=== PATIENT | female | born 1975 | race Caucasian/White ===

== ENCOUNTER 2018-06-04 18:44 | Emergency (ER) | payer OTHER ==
[2018-06-04] MEDS ORDERED: Rocephin 1000 MG INJ IM ONE (19:10)
[2018-06-04] MEDS ORDERED: XYLOCAINE 1% HCL 20 ML MDV ONE (19:12)
[2018-06-04] MEDS ORDERED: Rocephin 1000 MG INJ ONE (19:12)
--- NOTE | 2018-06-04 19:20 | ERPHSYRPT ---
- History of Present Illness Time Seen by Provider: 06/04/18 19:17 Source: patient Exam Limitations: no limitations Physician History: Patient is 43-year-old female recently underwent melanoma surgery and lymph node removal from her left groin last Wednesday and since last she was started having a low-grade fever, chills, and pain radiating to the left side of the abdomen. She denies any other symptoms. Timing/Duration: day(s) Associated Symptoms: chills, fever, rash - Review of Systems Constitutional: No Fever, No Chills Eyes: No Symptoms Ears, Nose, & Throat: No Symptoms Respiratory: No Cough, No Dyspnea Cardiac: No Chest Pain, No Edema, No Syncope Abdominal/Gastrointestinal: No Abdominal Pain, No Nausea, No Vomiting, No Diarrhea Genitourinary Symptoms: No Dysuria Musculoskeletal: No Back Pain, No Neck Pain Skin: Cellulitis, Induration, Rash Neurological: No Dizziness, No Focal Weakness, No Sensory Changes Psychological: No Symptoms Endocrine: No Symptoms All Other Systems: Reviewed and Negative - Physical Exam General Appearance: no apparent distress, alert Eye Exam: PERRL/EOMI, eyes nml inspection Ears, Nose, Throat Exam: normal ENT inspection, TMs normal, pharynx normal, moist mucous membranes Neck Exam: normal inspection, non-tender, supple, full range of motion Respiratory Exam: normal breath sounds, lungs clear, No respiratory distress Cardiovascular Exam: regular rate/rhythm, normal heart sounds, normal peripheral pulses Gastrointestinal/Abdomen Exam: soft, normal bowel sounds, No tenderness, No mass Back Exam: normal inspection, normal range of motion, No CVA tenderness, No vertebral tenderness Extremity Exam: normal inspection, normal range of motion, pelvis stable Neurologic Exam: alert, oriented x 3, cooperative, normal mood/affect, sensation nml, No motor deficits Skin Exam: normal color, warm, dry, rash, other (surgical area redness) Lymphatic Exam: No adenopathy - Course Nursing assessment & vital signs reviewed: Yes Ordered Tests: Medication Summary Discontinued Medications Generic Name Dose Route Start Last Admin Trade Name Freq PRN Reason Stop Dose Admin Ceftriaxone Sodium 1,000 mg 06/04/18 19:10 Rocephin 1000 Mg Inj IM 06/04/18 19:11 STAT ONE Ceftriaxone Sodium Confirm 06/04/18 19:12 Rocephin 1000 Mg Inj Administered 06/04/18 19:13 Dose 1,000 mg .ROUTE .STK-MED ONE Lidocaine HCl Confirm 06/04/18 19:12 Xylocaine 1% Hcl 20 Ml Mdv Administered 06/04/18 19:13 Dose 3 ml .ROUTE .STK-MED ONE - Progress Progress: unchanged, pain not gone completely Counseled pt/family regarding: diagnosis, need for follow-up - Departure Time of Disposition: 19:19 Departure Disposition: Home Clinical Impression: Cellulitis of groin, left, 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 Please take your medication as prescribed if given. If symptoms recur or get worse, come back to the emergency room if you cannot reach your primary care physician, or call your primary care physician for an appointment. Again if your symptoms get worse, come back to the emergency room. Thanks for visiting emergency room, and let us take care of you. VICKIESUSAN MALDONADO was seen on 06/04/18 n the Emergency Room. At that time you were treated for an emergent condition, during your visit Laboratory, Radiology and/or other procedures may have been ordered. It is very important that you follow-up with your Primary Care Physician CHIRAG RAMOS within the next 24- 48 hours to review your Emergency Room visit and the final results of testing that was ordered. Some test results such as Urine Cultures, Blood Cultures, and other cultures if ordered will not be finalized for 24-48 hours. If you do not have a Primary Care Provider please call the medical records department at [phone] to obtain a copy of your results or you may sign into our patient portal to obtain these results by visiting us @ [email or web address] and completing the following steps: 1. Click on the Patient Portal link 2. Click the Patient Self Enrollment Link to complete the enrollment form and entering your 3. Once the enrollment form is completed you will receive an email with a temporary ID and password at the email address you provided. 4. Next choose a user name and password. Your user name must be at least 4 characters long and your password must be at least 4 characters long. 5. Choose a security question from the list and provide your answer to the question. If you already have signed into the Health Portal you may access your Health Care Information 03/05 by the following steps: 1. Login to our website @ [email or web address] 2. Enter your original user name and password. FAQS [facility] Health Portal is an online tool that contains your Lab Results, Radiology Reports, Visit History, Discharge Instructions and Health Summary Lab and Radiology Results will not be available for 72 hours on the portal. The Portal is a secure site, passwords are encryted and URLs are re-written so they cannot be copied and pasted. You and authorized family members are the only ones who can access your Portal. Also there is a timeout feature that protects your information if you leave the Portal page open. If you have technical difficulty please use the Contact Us link on the page this will allow you to submit any questions you have regarding the Portal or you may contact the Medical Record Department at [phone]. Prescriptions: Levofloxacin [Levaquin 500 MG Tablet] 500 mg PO QAM #10 tablet Naproxen 375 mg [Naprosyn 375 mg] 375 mg PO Q8H #30 tablet
[2018-06-04] MEDS ORDERED: TORAdol 30 mg Injection IM ONE (19:22)
[2018-06-04] MEDS ORDERED: Naprosyn 500 MG PO STA (19:23)
[2018-06-04] MEDS ORDERED: TORAdol 30 mg Injection ONE (19:28)
[2018-06-04 19:46] VITALS: BP 169/85; PULSE 86; O2SAT 96
== END 2018-06-04 19:46 | disposition home or self-care (01) ==
LOC: ED 18:44
DX: L03.314 Cellulitis of groin (principal); D03.8 Melanoma in situ of other sites
CPT/HCPCS: 96372; 99284; J0696; J1885; A9270-GY

== ENCOUNTER 2018-07-31 10:53 | Observation (INO) | payer OTHER ==
[2018-07-31] MEDS ORDERED: Sodium Chloride 0.9% 1000 ML 1,000 ML IV STA ×2 (11:30→13:21)
[2018-07-31] MEDS ORDERED: Sodium Chloride 0.9% 1000 ML 1,000 ML ONE ×2 (11:37→14:15)
--- NOTE | 2018-07-31 11:41 | ERPHSYRPT ---
- History of Present Illness Time Seen by Provider: 07/31/18 11:34 Source: patient Exam Limitations: no limitations Patient Subjective Stated Complaint: patient had carcinoma removal on left leg nad the area is now swollen and hot to touch reddened . patient experiencing fever and chills for over 24 hours Triage Nursing Assessment: pt alert and orientedx3, able to ambulate by self, gait is steady, skin warm dry and intact, has reddend swollen area hot to touch. pedal pulses present, previous cellulitis of same wound area stated by patient. Physician History: 43-year-old white female status post melanoma removal on the patient's left leg and lymph node removal left groin 2 months ago arrives with complaint of erythema in her left medial proximal thigh tenderness in the left medial proximal thigh. She states that she's had a fever to 103 at home. She states she is taking ibuprofen. Past medical history includes depression Past surgical history includes Melanoma removal left leg, lymph nodes removed left groin. Social history occasional alcohol denies drug use. Timing/Duration: day(s) (2 days) Severity: moderate Modifying Factors: Improves With: nothing Associated Symptoms: fever, malaise, other (pain left groin (proximal medial thigh)), No nausea, No vomiting, No abdominal pain, No shortness of breath, No heartburn, No diaphoresis, No cough, No chills, No chest pain, No headaches, No loss of appetite, No rash, No syncope, No seizure, No weakness Allergies/Adverse Reactions: No Known Drug Allergies Allergy (Verified 06/04/18 19:22) Home Medications: Venlafaxine HCl [Effexor] 37.5 mg PO DAILY 06/04/18 [History] Hx Tetanus, Diphtheria Vaccination/Date Given: Yes Hx Influenza Vaccination/Date Given: No Hx Pneumococcal Vaccination/Date Given: No Immunizations Up to Date: Yes - Review of Systems Constitutional: Fever Eyes: No Symptoms Ears, Nose, & Throat: No Symptoms Respiratory: No Cough, No Dyspnea Cardiac: No Chest Pain, No Edema, No Syncope Abdominal/Gastrointestinal: No Abdominal Pain, No Nausea, No Vomiting, No Diarrhea Genitourinary Symptoms: No Dysuria Musculoskeletal: Other (Pain in the left medial thigh), No Back Pain, No Neck Pain Skin: Other (erythema left medial thigh) Neurological: No Dizziness, No Focal Weakness, No Sensory Changes Psychological: No Symptoms Endocrine: No Symptoms All Other Systems: Reviewed and Negative - Past Medical History Pertinent Past Medical History: Yes Psycho-Social History: Depression Other Medical History: basal cell carcinoma left leg - Past Surgical History Past Surgical History: Yes Musculoskeletal: Orthopedic Surgery Other Surgical History: basal cell removed from left leg. lymph nodes removed from left groin - Social History Smoking Status: Current every day smoker How long have you smoked: 26 Exposure to second hand smoke: No Drug Use: none Patient Lives Alone: No - Female History Hx Now: No - Nursing Vital Signs Nursing Vital Signs: Initial Vital Signs Temperature 99.9 F 07/31/18 10:53 Pulse Rate 98 H 07/31/18 10:53 Respiratory Rate 18 07/31/18 10:53 Blood Pressure 133/88 07/31/18 10:53 O2 Sat by Pulse Oximetry 99 07/31/18 10:53 Pain Scale Pain Intensity 6 - Physical Exam General Appearance: mild distress, alert, other (well-developed well-nourished white female, mild distress) Eye Exam: PERRL/EOMI, eyes nml inspection Ears, Nose, Throat Exam: normal ENT inspection, TMs normal, pharynx normal, moist mucous membranes Neck Exam: normal inspection, non-tender, supple, full range of motion Respiratory Exam: normal breath sounds, lungs clear, No respiratory distress Cardiovascular Exam: regular rate/rhythm, normal heart sounds, normal peripheral pulses Gastrointestinal/Abdomen Exam: soft, normal bowel sounds, No tenderness, No mass Back Exam: normal inspection, normal range of motion, No CVA tenderness, No vertebral tenderness Extremity Exam: other (Left medial proximal thigh with firm area appears to represent prior surgery which is healed area is firm and slightly raised approximately 3 x 5 cm. overlying area mild erythema, area exquisitely tender with palpation) Neurologic Exam: alert, oriented x 3, cooperative, chicken stuffer II-XII nml as tested, normal mood/affect, nml cerebellar function, nml station & gait, sensation nml, No motor deficits Skin Exam: other (left medial thigh with 3 x 5 cm firm mildly raised area with overlying 3 cm area which appears to be healed incision area is mildly erythematous and exquisitely tender) SpO2 Interpretation: normal (99%) SpO2: 99 Oxygen Delivery: Room Air - Course Nursing assessment & vital signs reviewed: Yes Ordered Tests: Active Orders 24 hr Category Date Time Status IV Insertion STAT Care 07/31/18 11:30 Active BLOOD CULTURE Stat Lab 07/31/18 11:40 Received CBC W DIFF Stat Lab 07/31/18 11:40 Completed CMP Stat Lab 07/31/18 11:40 Completed CULTURE,URINE Stat Lab 07/31/18 11:40 Received HCG QUALITATIVE,SERUM Stat Lab 07/31/18 11:40 Completed Lactic Acid Stat Lab 07/31/18 11:30 Completed UA W/RFX UR CULTURE Stat Lab 07/31/18 11:40 Completed Medication Summary Generic Name Dose Route Start Last Admin Trade Name Freq PRN Reason Stop Dose Admin Sodium Chloride 1,000 mls @ 999 mls/hr 07/31/18 13:21 Sodium Chloride 0.9% 1000 Ml IV 07/31/18 14:21 .Q1H1M STA Discontinued Medications Generic Name Dose Route Start Last Admin Trade Name Freq PRN Reason Stop Dose Admin Hydrocodone Bitart/Acetaminophen 1 tab 07/31/18 12:08 07/31/18 12:15 Echola 5/325 Mg PO 07/31/18 12:09 1 tab STAT ONE Administration Hydrocodone Bitart/Acetaminophen Confirm 07/31/18 12:12 Echola 5/325 Mg Administered 07/31/18 12:13 Dose 1 tab .ROUTE .STK-MED ONE Hydrocodone Bitart/Acetaminophen 1 tab 07/31/18 12:57 07/31/18 13:14 Echola 5/325 Mg PO 07/31/18 12:58 1 tab STAT ONE Administration Hydrocodone Bitart/Acetaminophen Confirm 07/31/18 13:13 Echola 5/325 Mg Administered 07/31/18 13:14 Dose 1 tab .ROUTE .STK-MED ONE Sodium Chloride 1,000 mls @ 999 mls/hr 07/31/18 11:30 07/31/18 11:38 Sodium Chloride 0.9% 1000 Ml IV 07/31/18 12:30 999 mls/hr .Q1H1M STA Administration Sodium Chloride Confirm 07/31/18 11:37 Sodium Chloride 0.9% 1000 Ml Administered 07/31/18 11:38 Dose 1,000 mls @ ud .ROUTE .STK-MED ONE Ceftriaxone Sodium/Dextrose 1 g in 50 mls @ 100 mls/hr 07/31/18 12:05 12:15 Rocephin 1 Gm-D5w 50 Ml Bag IV 07/31/18 12:34 100 ml/hr STAT STA 100 mls/hr Administration Ceftriaxone Sodium/Dextrose Confirm 07/31/18 12:12 Rocephin 1 Gm-D5w 50 Ml Bag Administered 07/31/18 12:13 Dose 1 g in 50 mls @ ud IV .STK-MED ONE Ibuprofen 600 mg 07/31/18 12:51 07/31/18 12:54 Motrin 600 Mg PO 07/31/18 12:52 600 mg STAT ONE Administration Ibuprofen Confirm 07/31/18 12:53 Motrin 600 Mg Administered 07/31/18 12:54 Dose 600 mg .ROUTE .STK-MED ONE Lab/Rad Data: Laboratory Result Diagrams 07/31/18 11:40 07/31/18 11:40 Laboratory Results 07/31/18 07/31/18 07/31/18 Range/Units 11:40 11:40 11:40 WBC (4.0-10.5) K/mm3 RBC (4.1-5.4) M/mm3 Hgb (12.0-16.0) gm/dl Hct (35-47) % MCV (78-100) fl MCH (26-32) pg MCHC (32-36) g/dl RDW (11.5-14.0) % Plt Count (150-450) K/mm3 MPV (6-9.5) fl Gran % (36.0-66.0) % Eos # (Auto) (0-0.5) Absolute Lymphs (auto) (1.0-4.6) Absolute Monos (auto) (0.0-1.3) Lymphocytes % (24.0-44.0) % Monocytes % (0.0-12.0) % Eosinophils % (0.00-5.0) % Basophils % (0.0-0.4) % Absolute Granulocytes (1.4-6.9) Basophils # (0-0.4) Sodium 142 (137-145) mmol/L Potassium 4.4 (3.5-5.1) mmol/L Chloride 103 (98-107) mmol/L Carbon Dioxide 28 (22-30) mmol/L Anion Gap 15.5 H (5-15) MEQ/L BUN 7 (7-17) mg/dL Creatinine 0.66 (0.52-1.04) mg/dL Estimated GFR > 60.0 ML/MIN Glucose 109 H (74-106) mg/dL Lactic Acid (0.4-2.0) Calcium 9.2 (8.4-10.2) mg/dL Total Bilirubin 0.50 (0.2-1.3) mg/dL AST 10 L (14-36) U/L ALT 12 (0-35) U/L Alkaline Phosphatase 74 (38-126) U/L Serum Total Protein 8.0 (6.3-8.2) g/dL Albumin 4.6 (3.5-5.0) g/dL Serum , Qual NEGATIVE (Negative) Urine Color STRAW (YELLOW) Urine Appearance CLEAR (CLEAR) Urine pH 8.0 (5-6) Ur Specific [place] 1.002 (1.005-1.025) Urine Protein NEGATIVE (Negative) Urine Ketones NEGATIVE (NEGATIVE) Urine Blood MODERATE (0-5) Etienne/ul Urine Nitrite NEGATIVE (NEGATIVE) Urine Bilirubin NEGATIVE (NEGATIVE) Urine Urobilinogen NEGATIVE (0-1) mg/dL Ur Leukocyte Esterase TRACE (NEGATIVE) Urine WBC (Auto) 3-5 (0-5) /HPF Urine RBC (Auto) 0-2 (0-2) /HPF U Epithel Cells (Auto) RARE (FEW) /HPF Urine Bacteria (Auto) RARE (NEGATIVE) /HPF Urine Mucus (Auto) SLIGHT (NEGATIVE) /HPF Urine Culture Reflexed YES (NO) Urine Glucose NEGATIVE (NEGATIVE) mg/dL 07/31/18 07/31/18 Range/Units 11:40 11:30 WBC 20.3 H (4.0-10.5) K/mm3 RBC 4.84 (4.1-5.4) M/mm3 Hgb 14.9 (12.0-16.0) gm/dl Hct 45.3 (35-47) % MCV 93.6 (78-100) fl MCH 30.8 (26-32) pg MCHC 32.9 (32-36) g/dl RDW 13.9 (11.5-14.0) % Plt Count 323 (150-450) K/mm3 MPV 10.4 H (6-9.5) fl Gran % 80.0 H (36.0-66.0) % Eos # (Auto) 0.04 (0-0.5) Absolute Lymphs (auto) 2.65 (1.0-4.6) Absolute Monos (auto) 1.34 H (0.0-1.3) Lymphocytes % 13.0 L (24.0-44.0) % Monocytes % 6.6 (0.0-12.0) % Eosinophils % 0.2 (0.00-5.0) % Basophils % 0.2 (0.0-0.4) % Absolute Granulocytes 16.26 H (1.4-6.9) Basophils # 0.04 (0-0.4) Sodium (137-145) mmol/L Potassium (3.5-5.1) mmol/L Chloride (98-107) mmol/L Carbon Dioxide (22-30) mmol/L Anion Gap (5-15) MEQ/L BUN (7-17) mg/dL Creatinine (0.52-1.04) mg/dL Estimated GFR ML/MIN Glucose (74-106) mg/dL Lactic Acid 0.9 (0.4-2.0) Calcium (8.4-10.2) mg/dL Total Bilirubin (0.2-1.3) mg/dL AST (14-36) U/L ALT (0-35) U/L Alkaline Phosphatase (38-126) U/L Serum Total Protein (6.3-8.2) g/dL Albumin (3.5-5.0) g/dL Serum , Qual (Negative) Urine Color (YELLOW) Urine Appearance (CLEAR) Urine pH (5-6) Ur Specific [place] (1.005-1.025) Urine Protein (Negative) Urine Ketones (NEGATIVE) Urine Blood (0-5) Etienne/ul Urine Nitrite (NEGATIVE) Urine Bilirubin (NEGATIVE) Urine Urobilinogen (0-1) mg/dL Ur Leukocyte Esterase (NEGATIVE) Urine WBC (Auto) (0-5) /HPF Urine RBC (Auto) (0-2) /HPF U Epithel Cells (Auto) (FEW) /HPF Urine Bacteria (Auto) (NEGATIVE) /HPF Urine Mucus (Auto) (NEGATIVE) /HPF Urine Culture Reflexed (NO) Urine Glucose (NEGATIVE) mg/dL - Progress Progress: improved Progress Note: 07/31/18 11:41 This is a 43-year-old white female with history of melanoma which was removed from the patient's left posterior leg distally and also removal of lymph nodes on patient's left medial groin approximately 2 months ago she states that for the past 2 days she's had a fever she has erythema in the left medial groin she is quite tender in the area She appears to have a proximally 3 x 5 cm raised area on the left medial groin , mild erythema with overlying healed incision. This area is exquisitely painful with palpation. She states she has had a fever up to 103 at home but has been taking ibuprofen Will go ahead and obtain blood cultures serum lactate CBC CMP and urinalysis. Do not anticipate incision of this area secondary to prior melanoma in the area. We will consider antibiotics. 07/31/18 12:40 Patient given 1 g of Rocephin IV. Patient given Echola for pain 5/325. I've offered her a second Echola she really doesn't want this. Will plan to discharge patient provide prescription of clindamycin 300 mg orally 3 times a day for 10 days. Will also plan to have patient place cool packs to the left groin/proximal thigh 24-48 hours. Will write for Echola 5/325 #14 tablets one orally every 4-6 hours as needed for pain. Patient has been advised to follow-up with her family doctor Wednesday or sooner if symptoms becoming worse. She is return for acute distress or for severe symptoms. 07/31/18 12:48 The patient's temperature is now 101.5 07/31/18 12:52 I went in and talked to the patient. She states she just generally feels malaise she states she does not feel well at all. Will go ahead and give patient Motrin 600 mg orally. X 07/31/18 13:35 I contacted [facility] states that his patient's option to stay at this hospital, the patient states she would like to stay at this hospital I contacted Dr. Jose Luis oCrbett. Discussed patient's case with her. Will go ahead and plan on admitting the patient. Continuing IV Rocephin. , Administering pain medications. Dr. Corbett requested that I write for a surgery consult. - Departure Time of Disposition: 12:41 Departure Disposition: Observation (Dr Corbett) Clinical Impression: Cellulitis of left thigh, history of melanoma left leg Fever Qualifiers: Fever type: unspecified Qualified Code(s): R50.9 - Fever, unspecified Leukocytosis Qualifiers: Leukocytosis type: unspecified Qualified Code(s): D72.829 - Elevated white blood cell count, unspecified Condition: Fair Critical Care Time: No Referrals: [facility] [Primary Care Provider] - Instructions: Fever, Adult (DC)
[2018-07-31 11:49] LABS: BASOPHIL % 0.2 % (0.0-0.4); Basophil (Absolute #) 0.04 (0-0.4); Eosinophil % 0.2 % (0.00-5.0); Eosinophil (Absolute #) 0.04 (0-0.5); Granulocyte Absolute (ANC) 16.26 (1.4-6.9); Hematocrit 45.3 % (35-47); Hemoglobin 14.9 gm/dl (12.0-16.0); Lymphocyte (Absolute #) 2.65 (1.0-4.6); Mean Cell Volume 93.6 fl (78-100); Mean Corpuscular Hemoglobin 30.8 pg (26-32); Mean Corpuscular Hgb Concent. 32.9 g/dl (32-36); Mean Platelet Volume 10.4 fl (6-9.5); Monocyte (Absolute #) 1.34 (0.0-1.3); Monocytes % 6.6 % (0.0-12.0); Platelet Count 323 K/mm3 (150-450); Red Blood Count 4.84 M/mm3 (4.1-5.4); Red Cell Distribution Width 13.9 % (11.5-14.0); White Blood Count 20.3 K/mm3 (4.0-10.5)
[2018-07-31 12:01] LABS: ALBUMIN 4.6 g/dL (3.5-5.0); ALKALINE PHOSPHATASE 74 U/L (38-126); ANION GAP 15.5 MEQ/L (5-15); BLOOD UREA NITROGEN 7 mg/dL (7-17); CHLORIDE 103 mmol/L (98-107); Calcium 9.2 mg/dL (8.4-10.2); Carbon Dioxide 28 mmol/L (22-30); Creatinine 1 0.66 mg/dL (0.52-1.04); Glucose 109 mg/dL (74-106); Potassium 4.4 mmol/L (3.5-5.1); SGOT/AST 10 U/L (14-36); SGPT/ALT 12 U/L (0-35); SODIUM 142 mmol/L (137-145)
[2018-07-31] MEDS ORDERED: ROCEPHIN 1 Gm-D5w 50 ml Bag** 1 G/50 ML IVPB IV STA (12:05)
[2018-07-31] MEDS ORDERED: NORCO 5/325 MG PO ONE ×2 (12:08→12:57)
[2018-07-31] MEDS ORDERED: ROCEPHIN 1 Gm-D5w 50 ml Bag** 1 G/50 ML IVPB IV ONE (12:12)
[2018-07-31] MEDS ORDERED: NORCO 5/325 MG ONE ×2 (12:12→13:13)
[2018-07-31 12:21] LABS: Appearance CLEAR (CLEAR); Bilirubin NEGATIVE (NEGATIVE); Blood MODERATE Ery/ul (0-5); Glucose NEGATIVE (NEGATIVE); Ketones NEGATIVE (NEGATIVE); Leukocyte Esterase TRACE (NEGATIVE); Nitrite NEGATIVE (NEGATIVE); Protein,Urine Dip NEGATIVE (Negative); Specific Gravity 1.002 (1.005-1.025); Urobilinogen NEGATIVE mg/dL (0-1)
[2018-07-31] MEDS ORDERED: MOTRIN 600 MG PO ONE (12:51)
[2018-07-31] MEDS ORDERED: MOTRIN 600 MG ONE (12:53)
[2018-07-31] MEDS ORDERED: NEOSYNEPHRINE 0.5% NASAL SPRAY/DROPS ONE (13:41)
[2018-07-31] MEDS: Sodium Chloride 0.9% 1000 ML 1,000 ML IV SCH (17:12)
[2018-07-31] MEDS: MOTRIN 600 MG PO PRN (20:14)
[2018-08-01] MEDS: TYLENOL 325 MG PO PRN ×2 (03:44→14:47)
[2018-08-01] MEDS: Sodium Chloride 0.9% 1000 ML 1,000 ML IV SCH ×2 (04:49→19:09)
[2018-08-01 05:30] LABS: BASOPHIL % 0.2 % (0.0-0.4); Basophil (Absolute #) 0.03 (0-0.4); Eosinophil % 0.5 % (0.00-5.0); Eosinophil (Absolute #) 0.09 (0-0.5); Granulocytes % 82.5 % (36.0-66.0); Hematocrit 34.8 % (35-47); Hemoglobin 11.3 gm/dl (12.0-16.0); Lymphocyte (Absolute #) 2.01 (1.0-4.6); Lymphocytes % 11.1 % (24.0-44.0); Mean Cell Volume 95.1 fl (78-100); Mean Corpuscular Hgb Concent. 32.5 g/dl (32-36); Mean Platelet Volume 10.8 fl (6-9.5); Monocyte (Absolute #) 1.04 (0.0-1.3); Monocytes % 5.7 % (0.0-12.0); Platelet Count 253 K/mm3 (150-450); Red Blood Count 3.66 M/mm3 (4.1-5.4); Red Cell Distribution Width 13.8 % (11.5-14.0); White Blood Count 18.2 K/mm3 (4.0-10.5)
[2018-08-01 05:41] LABS: Mean Corpuscular Hemoglobin 30.8 pg (26-32)
[2018-08-01 05:49] LABS: ALBUMIN 3.3 g/dL (3.5-5.0); ALKALINE PHOSPHATASE 71 U/L (38-126); BLOOD UREA NITROGEN 7 mg/dL (7-17); CHLORIDE 111 mmol/L (98-107); Calcium 7.9 mg/dL (8.4-10.2); Carbon Dioxide 22 mmol/L (22-30); Creatinine 1 0.48 mg/dL (0.52-1.04); Glucose 111 mg/dL (74-106); Potassium 3.5 mmol/L (3.5-5.1); SGOT/AST 15 U/L (14-36); SGPT/ALT 15 U/L (0-35); SODIUM 138 mmol/L (137-145); Total Protein 6.1 g/dL (6.3-8.2)
[2018-08-01] MEDS: NORCO 5/325 MG PO PRN ×2 (08:15→20:08)
[2018-08-01] MEDS: EFFEXOR 37.5 MG PO SCH (08:15)
[2018-08-01] MEDS ORDERED: FLUZONE QUAD (36mo-64yo) 2018-2019 SYRINGE IM ONE (10:00)
--- NOTE | 2018-08-01 10:07 | XRAY ---
Indication: Left groin lump. Two-dimensional targeted soft tissue ultrasound of the left groin region performed where there is a large cystic mass measuring 8.6 x 4.8 x 5.7 cm with hypervascular septation present. No other solid/cystic mass or abnormal fluid collection.
--- NOTE | 2018-08-01 11:07 | CONS ---
CONSULT DATE: 08/01/2018 The patient is seen by Dr. Hamilton Raza who was consulted over the weekend so I swung by on my way to [facility] to check on the patient. HISTORY: The patient is a 43 year-old female apparently had some melanoma surgery left lower extremity mid portion of posterior left leg behind the knee area just below the knee area. She had a node biopsy up in the groin area. She had some cellulitis that was poor to respond to antibiotics. Recently she had increased cellulitis, pain and swelling of groin area. She had some sutures taken out left leg biopsy site that dehisced some. She has an Escher there. She had a fever of 101.5F yesterday. She has been on IV antibiotics. They asked for surgical evaluation. I was consulted for Hamilton Raza. White blood cell count 18.2, hemoglobin 11.3. PAST MEDICAL HISTORY: Melanoma. History of depression in the past. PAST SURGICAL HISTORY: Melanoma removed from the left leg. She had node biopsy left groin area. HOME MEDICATIONS: Includes venlafaxine. ALLERGIES: NKDA. FAMILY HISTORY: Negative in regards to this specific problem. SOCIAL HISTORY: Occasional alcohol use denies abuse. History of smoking. REVIEW OF SYSTEMS: Twelve systems reviewed. She had a fever of 103F recently. She is not on IV antibiotics here. Otherwise pertinent for pain and swelling. Otherwise negative or noncontributory as above. PHYSICAL EXAMINATION: GENERAL: No acute distress. HEENT: Sclera nonicteric. NECK: No JVD. CHEST: Equal excursion, nonlabored breathing. CVS: Regular rhythm and pulse. ABDOMEN: Nondistended. EXTREMITIES: Open wound behind her knee upper and lower leg area with Escher. No significant fluctuance there, signs of wound dehiscence after sutures removed in the past. The upper thigh towards the groin transverse incision that is intact, no drainage. There is some redness and swelling there. The area is swollen more than it was a couple of weeks ago. Redness and swelling has not changed much when she started on antibiotics. NEURO: Alert, moving extremities grossly symmetrically. IMPRESSION: Cellulitis left upper thigh groin area under node biopsy site this was a lymph node removal site. Question whether she has possible infected seroma versus surrounding cellulitis or other infected seroma. Either way I recommend continuing IV antibiotics, recommend radiology ultrasound to explore the area. Can drain it and possibly place a drain if indicated and cultures. If this fails to improve she might need to open the wound, irrigation and packing. Either way needs continue antibiotic. If she fails to improve she might need to follow up with a surgeon. Ultrasound, drainage, possible drain placement if indicated as well as culture. Again, this patient is seen for Dr. Hamilton Raza who was paving stone installer for our group when the consult came in.
[2018-08-01] MEDS ORDERED: XYLOCAINE 1% HCL 20 ML MDV IJ ONE (11:13)
[2018-08-01] MEDS: ROCEPHIN 1 Gm-D5w 50 ml Bag** 1 G/50 ML IVPB IV SCH (12:07)
--- NOTE | 2018-08-01 13:00 | PCM.HP ---
History of Present Illness - Chief Complaint Chief Complaint: Cellulitis of Left Thigh, Fever, Leukocytosis, Hx of Melanoma Left Leg History of Present Illness: is a 43 year old female status post melanoma removal on the patient' s left leg and lymph node removal left groin 2 months ago arrives with complaint of erythema in her left medial proximal thigh tenderness in the left medial proximal thigh. She states that she's had a fever to 103 at home. - Review of Systems Constitutional: Fever, Chills Eyes: No Symptoms Ears, Nose, & Throat: No Symptoms Respiratory: No Cough, No Short Of Breath Cardiac: No Chest Pain, No Edema, No Syncope Abdominal/Gastrointestinal: No Abdominal Pain, No Nausea, No Vomiting, No Diarrhea Genitourinary Symptoms: No Dysuria Musculoskeletal: No Back Pain, No Neck Pain Skin: No Rash Neurological: No Dizziness, No Focal Weakness, No Sensory Changes Psychological: No Symptoms Endocrine: No Symptoms Hematologic/Lymphatic: No Symptoms Immunological/Allergic: No Symptoms Medications & Allergies Home Medications: Home Medication List Venlafaxine HCl [Effexor] 37.5 mg PO DAILY 06/04/18 [History Confirmed 07/31/18] Allergies/Adverse Reactions: Allergies Allergy/AdvReac Type Severity Reaction Status Date / Time No Known Drug Allergies Allergy Verified 06/04/18 19:22 - Past Medical History Past Medical History: Yes Neurological History: No Pertinent History ENT History: No Pertinent History Cardiac History: Hypertension Respiratory History: No Pertinent History Endocrine Medical History: No Pertinent History Musculoskelatal History: Fractures GI Medical History: No Pertinent History History: No Pertinent History Pyscho-Social History: Depression Reproductive Disorders: No Pertinent History Comment: 05/2018 Had melonoma cut out of L leg and lymph nodes in L groin. - Female History Hx Last Menstrual Period: 07/28/18 Are you now?: No - Past Surgical History Past Surgical History: Yes (2018) Neuro Surgical History: No Pertinent History Cardiac History: No Pertinent History GI Surgical History: No Pertinent History Genitourinary Surgical Hx: No Pertinent History Musculskeletal Surgical Hx: No Pertinent History Female Surgical History: Tubal Ligation, Other Other Surgical History: basal cell removed from left leg. lymph nodes removed from left groin - Social History Smoking Status: Current every day smoker How long have you smoked: 25 yrs Exposure to second hand smoke: No Alcohol: Occasionally Drug Use: none - Physical Exam Vital Signs: Vital Signs - 24 hr Temp Pulse Resp BP Pulse Ox 08/01/18 07:23 97 08/01/18 07:18 99.5 F 87 17 126/84 97 08/01/18 04:00 100.5 F 91 H 19 130/76 96 08/01/18 00:00 98.9 F 82 17 133/76 96 07/31/18 19:40 99.0 F 74 18 116/73 97 07/31/18 19:07 98 07/31/18 17:13 99.2 F 82 18 122/72 97 07/31/18 16:00 98 07/31/18 14:34 99.2 F 82 18 122/72 97 07/31/18 13:37 99 General Appearance: no apparent distress, alert Neurologic Exam: alert, oriented x 3, cooperative, normal mood/affect, nml cerebellar function, nml station & gait, sensation nml, No motor deficits Eye Exam: PERRL/EOMI, eyes nml inspection Ears, Nose, Throat Exam: normal ENT inspection, TMs normal, pharynx normal, moist mucous membranes Neck Exam: normal inspection, non-tender, supple, full range of motion Respiratory Exam: normal breath sounds, lungs clear, No respiratory distress Cardiovascular Exam: regular rate/rhythm, normal heart sounds, normal peripheral pulses Gastrointestinal/Abdomen Exam: soft, normal bowel sounds, No tenderness, No mass Back Exam: normal inspection, normal range of motion, No CVA tenderness, No vertebral tenderness Extremity Exam: normal inspection, normal range of motion, pelvis stable Skin Exam: normal color, warm, dry, No rash Lymphatic Exam: No adenopathy Results - Labs Lab/Micro Results: Lab Results-Last 24 Hours 07/31/18 08/01/18 08/01/18 Range/Units 11:45 05:08 05:08 WBC 18.2 H (4.0-10.5) K/mm3 RBC 3.66 L (4.1-5.4) M/mm3 Hgb 11.3 L (12.0-16.0) gm/dl Hct 34.8 L (35-47) % MCV 95.1 (78-100) fl MCH 30.8 (26-32) pg MCHC 32.5 (32-36) g/dl RDW 13.8 (11.5-14.0) % Plt Count 253 (150-450) K/mm3 MPV 10.8 H (6-9.5) fl Gran % 82.5 H (36.0-66.0) % Eos # (Auto) 0.09 (0-0.5) Absolute Lymphs (auto) 2.01 (1.0-4.6) Absolute Monos (auto) 1.04 (0.0-1.3) Lymphocytes % 11.1 L (24.0-44.0) % Monocytes % 5.7 (0.0-12.0) % Eosinophils % 0.5 (0.00-5.0) % Basophils % 0.2 (0.0-0.4) % Absolute Granulocytes 15.00 H (1.4-6.9) Basophils # 0.03 (0-0.4) Sodium 138 (137-145) mmol/L Potassium 3.5 (3.5-5.1) mmol/L Chloride 111 H (98-107) mmol/L Carbon Dioxide 22 (22-30) mmol/L Anion Gap 9.0 (5-15) MEQ/L BUN 7 (7-17) mg/dL Creatinine 0.48 L (0.52-1.04) mg/dL Estimated GFR > 60.0 ML/MIN Glucose 111 H (74-106) mg/dL Calcium 7.9 L (8.4-10.2) mg/dL Total Bilirubin 0.20 (0.2-1.3) mg/dL AST 15 (14-36) U/L ALT 15 (0-35) U/L Alkaline Phosphatase 71 (38-126) U/L Serum Total Protein 6.1 L (6.3-8.2) g/dL Albumin 3.3 L (3.5-5.0) g/dL Prealbumin 17.16 L (17.6-36.0) mg/dL Microbiology 07/31/18 11:40 Blood Culture - Preliminary Blood NO GROWTH TO DATE 07/31/18 11:40 Blood Culture - Preliminary Blood NO GROWTH TO DATE 07/31/18 11:40 Urine Culture - Preliminary Urine, Void NO GROWTH TO DATE - Radiology Impressions Radiology Exams & Impressions: Radiology Procedures Category Date Time Status EXTREMITY NON VASCULAR [US] Routine Exams 08/01/18 08:00 Completed GUIDANCE FOR NEEDLE PLACEMENT [US] Routine Exams 08/01/18 08:00 Ordered Assessment/Plan (1) Cellulitis of left thigh Current Visit: Yes Status: Acute Onset Date: ~07/31/18 Assessment & Plan: Last Vital Signs Temp 99.5 F 08/01/18 07:18 Pulse 87 08/01/18 07:18 Resp 17 08/01/18 07:18 BP 126/84 08/01/18 07:18 Pulse Ox 97 08/01/18 07:23 Allergies No Known Drug Allergies Allergy (Verified 06/04/18 19:22) Active Medications Acetaminophen (Tylenol 325 Mg) 650 mg PO Q4H PRN PRN PRN Reason: PAIN AND/OR FEVER Stop: 08/30/18 14:33 Last Admin: 08/01/18 03:44 Dose: 650 mg Hydrocodone Bitart/Acetaminophen ([place] 5/325 Mg) 1 tab PO Q6H PRN PRN PRN Reason: PAIN Stop: 08/05/18 21:33 Last Admin: 08/01/18 08:15 Dose: 1 tab Ceftriaxone Sodium/Dextrose (Rocephin 1 Gm-D5w 50 Ml Bag) 1 g in 50 mls @ 100 mls/hr IV Q24H10 RUBY Stop: 08/31/18 09:59 Last Admin: 08/01/18 12:07 Dose: 100 mls/hr Sodium Chloride (Sodium Chloride 0.9% 1000 Ml) 1,000 mls @ 100 mls/hr IV .Q10H RUBY Stop: 08/30/18 14:33 Last Admin: 08/01/18 04:49 Dose: 100 mls/hr Ibuprofen (Motrin 600 Mg) 600 mg PO TIDP PRN PRN Reason: MODERATE PAIN Stop: 08/30/18 14:33 Last Admin: 07/31/18 20:14 Dose: 600 mg Venlafaxine HCl (Effexor 37.5 Mg) 37.5 mg PO DAILY RUBY Stop: 08/31/18 09:59 Last Admin: 08/01/18 08:15 Dose: 37.5 mg Intake & Output 08/01/18 08/02/18 11:59 11:59 Intake Total 2497 Output Total 1900 Balance 597 Weight 82.2 kg Lab Tests 07/31/18 08/01/18 08/01/18 11:45 05:08 05:08 WBC 18.2 H RBC 3.66 L Hgb 11.3 L Hct 34.8 L MCV 95.1 MCH 30.8 MCHC 32.5 RDW 13.8 Plt Count 253 MPV 10.8 H Gran % 82.5 H Eos # (Auto) 0.09 Absolute Lymphs (auto) 2.01 Absolute Monos (auto) 1.04 Lymphocytes % 11.1 L Monocytes % 5.7 Eosinophils % 0.5 Basophils % 0.2 Absolute Granulocytes 15.00 H Basophils # 0.03 Sodium 138 Potassium 3.5 Chloride 111 H Carbon Dioxide 22 Anion Gap 9.0 BUN 7 Creatinine 0.48 L Estimated GFR > 60.0 Glucose 111 H Calcium 7.9 L Total Bilirubin 0.20 AST 15 ALT 15 Alkaline Phosphatase 71 Serum Total Protein 6.1 L Albumin 3.3 L Prealbumin 17.16 L Microbiology 07/31/18 11:40 Blood Blood Culture - Preliminary NO GROWTH TO DATE 07/31/18 11:40 Blood Blood Culture - Preliminary NO GROWTH TO DATE 07/31/18 11:40 Urine, Void Urine Culture - Preliminary NO GROWTH TO DATE Code(s): L03.116 - CELLULITIS OF LEFT LOWER LIMB (2) Fever Current Visit: Yes Status: Acute Onset Date: ~07/31/18 Qualifiers: Fever type: unspecified Qualified Code(s): R50.9 - Fever, unspecified Code(s): R50.9 - FEVER, UNSPECIFIED (3) Leukocytosis Current Visit: Yes Status: Acute Onset Date: ~07/31/18 Qualifiers: Leukocytosis type: unspecified Qualified Code(s): D72.829 - Elevated white blood cell count, unspecified Code(s): D72.829 - ELEVATED WHITE BLOOD CELL COUNT, UNSPECIFIED (4) Melanoma in situ of left lower leg Current Visit: Yes Status: Acute Code(s): D03.72 - MELANOMA IN SITU OF LEFT LOWER LIMB, INCLUDING HIP
[2018-08-01] MEDS: Nicoderm CQ 21 MG TOP SCH (14:48)
--- NOTE | 2018-08-01 15:12 | XRAY ---
Indication: Left proximal thigh cyst versus seroma versus abscess. History of melanoma. Informed consent obtained. Patient placed on the gurney in a prone position. Ultrasound of the left thigh was performed for localization. The skin was then prepped and draped in sterile fashion. 1% lidocaine plane used for local anesthesia. Tiny skin incision made. A 18-gauge percutaneous needle was then inserted with the tip advanced into the fluid collection using ultrasound guidance. A thin floppy-tipped guidewire was then inserted. The track was then dilated up to 8 Pakistani. Ultimately a 8.5 Pakistani pigtail drainage catheter was inserted over the guidewire. The guidewire was removed and the pigtail was formed and locked. Repeat ultrasound demonstrates good catheter tip placement. Approximately 30 cc of clear kishore transudative fluid was aspirated and sent to laboratory for analysis. Ultimately the catheter was secured using a Divina disc and attached to a BEVERLY drainage device. Patient was discharged to her room in good condition. Impression: Technically successful ultrasound-guided insertion of a percutaneous drainage catheter for a proximal left thigh fluid collection. No immediate complications.
[2018-08-01 17:18] LABS: ALBUMIN 3.5 g/dL (3.5-5.0); ALKALINE PHOSPHATASE 70 U/L (38-126); ANION GAP 10.2 MEQ/L (5-15); BLOOD UREA NITROGEN 6 mg/dL (7-17); CHLORIDE 107 mmol/L (98-107); Calcium 8.3 mg/dL (8.4-10.2); Carbon Dioxide 25 mmol/L (22-30); Creatinine 1 0.57 mg/dL (0.52-1.04); Glucose 146 mg/dL (74-106); Potassium 3.8 mmol/L (3.5-5.1); SGOT/AST 18 U/L (14-36); SGPT/ALT 19 U/L (0-35); SODIUM 139 mmol/L (137-145); Total Protein 6.3 g/dL (6.3-8.2)
[2018-08-02] MEDS: MOTRIN 600 MG PO PRN ×2 (01:14→11:08)
[2018-08-02] MEDS: Sodium Chloride 0.9% 1000 ML 1,000 ML IV SCH (04:53)
[2018-08-02 05:25] LABS: BASOPHIL % 0.4 % (0.0-0.4); Basophil (Absolute #) 0.04 (0-0.4); Eosinophil % 1.9 % (0.00-5.0); Granulocyte Absolute (ANC) 6.53 (1.4-6.9); Hematocrit 33.6 % (35-47); Hemoglobin 10.7 gm/dl (12.0-16.0); Lymphocyte (Absolute #) 3.03 (1.0-4.6); Lymphocytes % 28.7 % (24.0-44.0); Mean Cell Volume 96.8 fl (78-100); Mean Corpuscular Hemoglobin 30.8 pg (26-32); Mean Corpuscular Hgb Concent. 31.8 g/dl (32-36); Mean Platelet Volume 11.2 fl (6-9.5); Monocyte (Absolute #) 0.74 (0.0-1.3); Platelet Count 252 K/mm3 (150-450); Red Blood Count 3.47 M/mm3 (4.1-5.4); Red Cell Distribution Width 13.8 % (11.5-14.0); White Blood Count 10.5 K/mm3 (4.0-10.5)
[2018-08-02 07:11] VITALS: BP 134/79; PULSE 74; O2SAT 98
[2018-08-02] MEDS: Nicoderm CQ 21 MG TOP SCH (10:28)
[2018-08-02] MEDS: EFFEXOR 37.5 MG PO SCH (10:30)
[2018-08-02] MEDS: ROCEPHIN 1 Gm-D5w 50 ml Bag** 1 G/50 ML IVPB IV SCH (10:30)
--- NOTE | 2018-08-02 11:17 | PCM.DS ---
Discharge Summary Date of Admission: 07/31/18 14:30 Admitting Physician: TAMAR HANNA Consults: Consults on Case 07/31/18 14:34 Consult Surgery ROUTINE Primary Care Provider: [facility] Allergies Allergies No Known Drug Allergies Allergy (Verified 06/04/18 19:22) Hospital Summary - Hospital Course Hospital Course: Chief Complaint Diagnosis Cellulitis of Left Thigh, Fever, Leukocytosis, Hx of Melanoma Left Leg Allergies Allergy/AdvReac Type Severity Reaction Status Date / Time No Known Drug Allergies Allergy Verified 06/04/18 19:22 Vital Signs (Last 24 hours) Temp Pulse Resp BP Pulse Ox 08/02/18 07:10 98.0 F 74 18 134/79 98 08/02/18 04:00 98.2 F 68 16 123/75 97 08/02/18 00:00 98.8 F 82 18 136/80 97 08/01/18 20:18 96 08/01/18 20:00 98.7 F 84 18 140/80 97 08/01/18 16:00 99.4 F 91 H 18 129/72 97 08/01/18 12:00 100.1 F 80 16 155/97 100 Home Medications Medication Instructions Recorded Confirmed Last Taken Type Levofloxacin [Levaquin] 500 mg PO DAILY #10 tablet 08/02/18 Unknown Rx Current Medications Generic Name Dose Route Start Last Admin Trade Name Freq PRN Reason Stop Dose Admin Acetaminophen 650 mg 07/31/18 14:34 08/01/18 14:47 Tylenol 325 Mg PO 08/30/18 14:33 650 mg Q4H PRN PRN Administration PAIN AND/OR FEVER Hydrocodone Bitart/Acetaminophen 1 tab 07/31/18 21:34 08/01/18 20:08 [place] 5/325 Mg PO 08/05/18 21:33 1 tab Q6H PRN PRN Administration PAIN Ceftriaxone Sodium/Dextrose 1 g in 50 mls @ 100 mls/hr 08/01/18 10:00 10:30 Rocephin 1 Gm-D5w 50 Ml Bag IV 08/31/18 09:59 100 mls/hr Q24H10 RUBY Administration Sodium Chloride 1,000 mls @ 100 mls/hr 07/31/18 14:34 08/02/18 04:53 Sodium Chloride 0.9% 1000 Ml IV 08/30/18 14:33 100 mls/hr .Q10H RUBY Administration Ibuprofen 600 mg 07/31/18 14:34 08/02/18 11:08 Motrin 600 Mg PO 08/30/18 14:33 600 mg TIDP PRN Administration MODERATE PAIN Nicotine 21 mg 08/01/18 13:30 08/02/18 10:28 Nicoderm Cq 21 Mg TOP 08/31/18 13:29 21 mg Q24H10 RUBY Administration Venlafaxine HCl 37.5 mg 08/01/18 10:00 08/02/18 10:30 Effexor 37.5 Mg PO 08/31/18 09:59 37.5 mg DAILY RUBY Administration Discontinued Medications Generic Name Dose Route Start Last Admin Trade Name Freq PRN Reason Stop Dose Admin Hydrocodone Bitart/Acetaminophen 1 tab 07/31/18 12:08 07/31/18 12:15 [place] 5/325 Mg PO 07/31/18 12:09 1 tab STAT ONE Administration Hydrocodone Bitart/Acetaminophen Confirm 07/31/18 12:12 [place] 5/325 Mg Administered 07/31/18 12:13 Dose 1 tab .ROUTE .STK-MED ONE Hydrocodone Bitart/Acetaminophen 1 tab 07/31/18 12:57 07/31/18 13:14 [place] 5/325 Mg PO 07/31/18 12:58 1 tab STAT ONE Administration Hydrocodone Bitart/Acetaminophen Confirm 07/31/18 13:13 [place] 5/325 Mg Administered 07/31/18 13:14 Dose 1 tab .ROUTE .STK-MED ONE Sodium Chloride 1,000 mls @ 999 mls/hr 07/31/18 11:30 07/31/18 11:38 Sodium Chloride 0.9% 1000 Ml IV 07/31/18 12:30 999 mls/hr .Q1H1M STA Administration Sodium Chloride Confirm 07/31/18 11:37 Sodium Chloride 0.9% 1000 Ml Administered 07/31/18 11:38 Dose 1,000 mls @ ud .ROUTE .STK-MED ONE Ceftriaxone Sodium/Dextrose 1 g in 50 mls @ 100 mls/hr 07/31/18 12:05 12:15 Rocephin 1 Gm-D5w 50 Ml Bag IV 07/31/18 12:34 100 ml/hr STAT STA 100 mls/hr Administration Ceftriaxone Sodium/Dextrose Confirm 07/31/18 12:12 Rocephin 1 Gm-D5w 50 Ml Bag Administered 07/31/18 12:13 Dose 1 g in 50 mls @ ud IV .STK-MED ONE Sodium Chloride 1,000 mls @ 999 mls/hr 07/31/18 13:21 07/31/18 14:16 Sodium Chloride 0.9% 1000 Ml IV 07/31/18 14:21 999 mls/hr .Q1H1M STA Administration Sodium Chloride Confirm 07/31/18 14:15 Sodium Chloride 0.9% 1000 Ml Administered 07/31/18 14:16 Dose 1,000 mls @ ud .ROUTE .STK-MED ONE Ibuprofen 600 mg 07/31/18 12:51 07/31/18 12:54 Motrin 600 Mg PO 07/31/18 12:52 600 mg STAT ONE Administration Ibuprofen Confirm 07/31/18 12:53 Motrin 600 Mg Administered 07/31/18 12:54 Dose 600 mg .ROUTE .STK-MED ONE Influenza Virus Vaccine 60 mcg 08/01/18 10:00 08/01/18 08:11 Fluzone Quad (36mo-64yo) 1192-1379 Syringe IM 08/01/18 10:01 Not Given .ONCE ONE Lidocaine HCl 10 ml 08/01/18 11:13 Xylocaine 1% Hcl 20 Ml Mdv IJ 08/01/18 11:14 .STK-MED ONE Phenylephrine HCl Confirm 07/31/18 13:41 Neosynephrine 0.5% Nasal [place] Breeze/Drops Administered 07/31/18 13:42 Dose 15 ml .ROUTE .STK-MED ONE Intake & Output (Last 24 hours) 07/30/18 07/31/18 08/01/18 08/02/18 11:59 11:59 11:59 11:59 Intake Total 2497 3863 Output Total 1900 2435 Balance 597 1428 Weight 77.111 kg 82.2 kg 83.4 kg Microbiology Results (Last 24 hours) 07/31/18 11:40 Urine, Void Urine Culture - Final MIXED ANTONINO; 3 OR MORE TYPES. NO PREDOMINANT ORGANISM. NO FURTHER WORKUP. PLEASE RESUBMIT IF CLINICALLY INDICATED. 08/01/18 08:10 Groin - Left Wound Culture - Preliminary GRAM NEGATIVE ID AND SENSITIVITY PENDING 07/31/18 11:40 Blood Blood Culture Gram Stain - Pending 07/31/18 11:40 Blood Blood Culture - Preliminary NO GROWTH TO DATE 07/31/18 11:40 Blood Blood Culture Gram Stain - Pending 07/31/18 11:40 Blood Blood Culture - Preliminary NO GROWTH TO DATE Laboratory Results (Last 24 hours) 08/02/18 08/01/18 04:56 16:57 WBC 10.5 RBC 3.47 L Hgb 10.7 L Hct 33.6 L MCV 96.8 MCH 30.8 MCHC 31.8 L RDW 13.8 Plt Count 252 MPV 11.2 H Gran % 62.0 Eos # (Auto) 0.20 Absolute Lymphs (auto) 3.03 Absolute Monos (auto) 0.74 Lymphocytes % 28.7 Monocytes % 7.0 Eosinophils % 1.9 Basophils % 0.4 Absolute Granulocytes 6.53 Basophils # 0.04 Sodium 139 Potassium 3.8 Chloride 107 Carbon Dioxide 25 Anion Gap 10.2 BUN 6 L Creatinine 0.57 Estimated GFR > 60.0 Glucose 146 H Calcium 8.3 L Total Bilirubin 0.20 AST 18 ALT 19 Alkaline Phosphatase 70 Serum Total Protein 6.3 Albumin 3.5 Orders (Last 24 hours) Category Date Time Status NPO Diet 08/02/18 00:01 Completed Regular Diet Diet 08/02/18 Breakfast Active CBC W DIFF AM.LAB Lab 08/02/18 04:56 Completed CMP Routine Lab 08/01/18 16:57 Completed Lidocaine HCl 1% 20 ml Mdv [Xylocaine 1% HCl 20 ml Med 08/01/18 11:13 Discontinued Mdv] 10 ml IJ .STK-MED ONE Nicotine 21 mg [Nicoderm CQ 21 MG] Med 08/01/18 13:30 Active 21 mg TOP Q24H10 Patient Care Notes (Last 24 hours) 08/02/18 10:13 [employer]KE [employer]MER Note by Belle Florian Patient refuses the telemantery at this time states just very uncomfortable changed her bed and talked to her she states she's probly going home. Initialized on 08/02/18 10:13 - END OF NOTE 08/02/18 09:00 (created 08/02/18 09:56) Case Management Note by Charley Li INDEPENDENT WITH ALL ADL'S. PLAN TO RETURN HOME TO PRE EPISODIC LEVEL OF [place]. DISCUSSED NEED FOR MEDICAL AND SURGICAL FOLLOWUP ON DISCHARGE. PT REPORTS THAT SHE WILL CALL [facility] TO SEE WHO SHE WILL BE ABLE TO FOLLOWUP WITH. PT TO LET CASE MANAGEMENT KNOW FOR SCHEDULING OF FOLLOWUP. ALSO, DISCUSSED THAT PT WILL BE UNABLE TO RETURN TO WORK UNTIL DRAIN CAN BE REMOVED. PT VERBALIZED UNDERSTANDING AND ABLE TO REPEAT INFORMATION BACK. Initialized on 08/02/18 09:56 - END OF NOTE 08/01/18 13:10 (created 08/01/18 13:21) Case Management Note by Charley Li DR. ROUNDED AND EVALUATED, DISCUSSED TREATMENT PLAN WITH PT AND FAMILY AT BEDSIDE. ALL VERBALIZED UNDERSTANDING AND ABLE TO REPEAT INFORMATION BACK. DR. SKINNER DISCUSSED WITH PT AND FAMILY THAT HE WOULD DISCUSS PLAN WITH DR. THRASHER. PT VOICED NO OTHER QUESTIONS. DENIES ADDNL NEEDS AT PRESENT. WILL FOLLOW FOR ALL DC NEEDS. Initialized on 08/01/18 13:21 - END OF NOTE - Vitals & Intake/Output Vital Signs: Vital Signs Temperature 98.0 F 08/02/18 07:10 Pulse Rate 74 08/02/18 07:10 Respiratory Rate 18 08/02/18 07:10 Blood Pressure 134/79 08/02/18 07:10 O2 Sat by Pulse Oximetry 98 08/02/18 07:10 Intake & Output: Intake & Output 07/30/18 07/31/18 08/01/18 08/02/18 11:59 11:59 11:59 11:59 Intake Total 2497 3863 Output Total 1900 4415 Balance 597 1428 Weight 77.111 kg 82.2 kg 83.4 kg - Lab Result Diagrams: 08/02/18 04:56 08/01/18 16:57 Lab Results-Last 24 Hrs: Lab Results-Last 24 Hours 08/01/18 08/02/18 Range/Units 16:57 04:56 WBC 10.5 (4.0-10.5) K/mm3 RBC 3.47 L (4.1-5.4) M/mm3 Hgb 10.7 L (12.0-16.0) gm/dl Hct 33.6 L (35-47) % MCV 96.8 (78-100) fl MCH 30.8 (26-32) pg MCHC 31.8 L (32-36) g/dl RDW 13.8 (11.5-14.0) % Plt Count 252 (150-450) K/mm3 MPV 11.2 H (6-9.5) fl Gran % 62.0 (36.0-66.0) % Eos # (Auto) 0.20 (0-0.5) Absolute Lymphs (auto) 3.03 (1.0-4.6) Absolute Monos (auto) 0.74 (0.0-1.3) Lymphocytes % 28.7 (24.0-44.0) % Monocytes % 7.0 (0.0-12.0) % Eosinophils % 1.9 (0.00-5.0) % Basophils % 0.4 (0.0-0.4) % Absolute Granulocytes 6.53 (1.4-6.9) Basophils # 0.04 (0-0.4) Sodium 139 (137-145) mmol/L Potassium 3.8 (3.5-5.1) mmol/L Chloride 107 (98-107) mmol/L Carbon Dioxide 25 (22-30) mmol/L Anion Gap 10.2 (5-15) MEQ/L BUN 6 L (7-17) mg/dL Creatinine 0.57 (0.52-1.04) mg/dL Estimated GFR > 60.0 ML/MIN Glucose 146 H (74-106) mg/dL Calcium 8.3 L (8.4-10.2) mg/dL Total Bilirubin 0.20 (0.2-1.3) mg/dL AST 18 (14-36) U/L ALT 19 (0-35) U/L Alkaline Phosphatase 70 (38-126) U/L Serum Total Protein 6.3 (6.3-8.2) g/dL Albumin 3.5 (3.5-5.0) g/dL Micro Results-Entire Visit: Microbiology 07/31/18 11:40 Urine Culture - Final Urine, Void MIXED ANTONINO; 3 OR MORE TYPES. NO PREDOMINANT ORGANISM. NO FURTHER WORKUP. PLEASE RESUBMIT IF CLINICALLY INDICATED. 08/01/18 08:10 Wound Culture - Preliminary Groin - Left GRAM NEGATIVE ID AND SENSITIVITY PENDING 07/31/18 11:40 Blood Culture - Preliminary Blood NO GROWTH TO DATE 07/31/18 11:40 Blood Culture - Preliminary Blood NO GROWTH TO DATE - Radiology Exams Ordered Rad Exams-Entire Visit: Radiology Procedures Category Date Time Status EXTREMITY NON VASCULAR [US] Routine Exams 08/01/18 08:00 Completed GUIDANCE FOR NEEDLE PLACEMENT [US] Routine Exams 08/01/18 08:00 Completed - Procedures and Test Procedures and Tests throughout Hospitalization: Therapy Orders & Screens 07/31/18 17:52 Smoking Cessation Education ONCE Comment: Diagnosis: Cellulitis of Left Thigh, Fever, Leukocytosis, Hx of Melanoma Left Leg Smoking Status: Current every day smoker How long have you smoked: 25 yrs Have you smoked in the past 12 months: Yes Do you dip or chew tobacco: No 08/01/18 08:00 OT Screen per Nursing Assess Comment: Protocol Order Physician Instructions: Greater than 3 points order OT Admission Screening Reason For Exam: Triggered on Admission Diagnosis: Cellulitis of Left Thigh, Fever, Leukocytosis, Hx of Melanoma Left Leg Open Wound/Cellutlitis/Pressure Ulcers: Yes Acute Fx/ORIF/Change in wt bearing status: No Severe MUSCULOSKELETAL pain: No ADL Dysfunction: No Acute CVA w/Hemiparesis/Hemiplegia: No Decreased Functional Mobility/Strength: No Sprain/Strain: No Acute Post-op Mobility Dysfunction: No Total Points: 5 Discharge Exam General Appearance: no apparent distress, alert Neurologic Exam: alert, oriented x 3, cooperative, normal mood/affect, nml cerebellar function, sensation nml, No motor deficits Skin Exam: normal color, warm, dry Eye Exam: PERRL, EOMI, eyes nml inspection Ears, Nose, Throat Exam: normal ENT inspection, pharynx normal, moist mucous membranes Neck Exam: normal inspection, non-tender, supple, full range of motion Respiratory Exam: normal breath sounds, lungs clear, No respiratory distress Cardiovascular Exam: regular rate/rhythm, normal heart sounds Gastrointestinal/Abdomen Exam: soft, No tenderness, No mass Extremity Exam: normal inspection, normal range of motion Back Exam: normal inspection, normal range of motion, No CVA tenderness, No vertebral tenderness Pelvic Exam: deferred Rectal Exam: deferred Final Diagnosis/Problem List - Final Discharge Diagnosis/Problem (1) Cellulitis of left thigh Current Visit: Yes Status: Acute Onset Date: ~07/31/18 Assessment & Plan: s/p drainage and BEVERLY tube placement. doing ok, WBC count down, afebrile, will d/ c home with levaquin 500 mg po daily for 7 days (2) Fever Current Visit: Yes Status: Acute Onset Date: ~07/31/18 (3) Leukocytosis Current Visit: Yes Status: Acute Onset Date: ~07/31/18 (4) Melanoma in situ of left lower leg Current Visit: Yes Status: Acute - Discharge Discharge Date: 08/02/18 Disposition: Home, Self-Care Condition: Stable Prescriptions: New Levofloxacin [Levaquin] 500 mg PO DAILY #10 tablet Continue Venlafaxine HCl [Effexor] 37.5 mg PO DAILY Instructions: Burt-Heller Drain, Cellulitis (Skin Infection), Adult (DC) Forms: Work/School Release Form
== END 2018-08-02 11:37 | disposition home or self-care (01) ==
LOC: ED 10:53 → MED SURG 14:30
PROVIDERS: ADMIT General Practice; ATTEND General Practice
DX: L03.116 Cellulitis of left lower limb (principal); R50.9 Fever, unspecified; D72.829 Elevated white blood cell count, unspecified; D03.72 Melanoma in situ of left lower limb, including hip; F32.9 Major depressive disorder, single episode, unspecified
CPT/HCPCS: 36000; 36415; 76881; 76942; 80053; 81001; 83605; 84134; 84703; 85025; 87040; 87070; 87077; 87086; 87186; 93268; 94762; 96360; 96361; 96365; 99285; G0378; 81025; J0696; A9270-GY

== ENCOUNTER 2019-12-07 14:11 | Emergency (ER) | payer OTHER ==
--- NOTE | 2019-12-07 14:54 | ERPHSYRPT ---
- History of Present Illness Time Seen by Provider: 12/07/19 14:32 Source: patient Exam Limitations: no limitations Patient Subjective Stated Complaint: pt here for lower back pain for 2 weeks with no injury she states it is getting worse and today she is having weakness and pain shooting down right leg, she as taken motrin Triage Nursing Assessment: pt alert, resp easy, walked in slow guarding back, skin w/d/p Physician History: 44 years old female presented in the ER with chief complaint of low back pain for the last 2 weeks without any known trauma/obvious cause with radiation to right lower extremity got worse for the last 2 to 3 days. Patient report because of pain sometimes her right leg gives away and feels weaker than the left with some tingling/numbness. She does have stress incontinence since her childbirth which is getting a little worse recently. She denies any perineal area numbness or loss of bowel control. Timing/Duration: week(s) (2), intermittent, worse Method of Injury: unknown Quality: sharp, stabbing Back Pain Location: lumbar spine Back Pain Radiation: buttocks Severity of Pain-Max: severe Severity of Pain-Current: severe Modifying Factors: Improves With: movement, rest Associated Symptoms: sensory/motor loss, lower back pain Previous symptoms: no prior history Allergies/Adverse Reactions: No Known Drug Allergies Allergy (Verified 12/07/19 14:29) Hx Tetanus, Diphtheria Vaccination/Date Given: Yes Hx Influenza Vaccination/Date Given: No Hx Pneumococcal Vaccination/Date Given: No Immunizations Up to Date: Yes - Past Medical History Pertinent Past Medical History: Yes Neurological History: No Pertinent History ENT History: No Pertinent History Cardiac History: Hypertension Respiratory History: No Pertinent History Endocrine Medical History: No Pertinent History Musculoskeletal History: Fractures GI Medical History: No Pertinent History History: No Pertinent History Psycho-Social History: Depression Female Reproductive Disorders: No Pertinent History Other Medical History: skin ca - Past Surgical History Past Surgical History: Yes (2018) Neuro Surgical History: No Pertinent History Cardiac: No Pertinent History Gastrointestinal: No Pertinent History Genitourinary: No Pertinent History Musculoskeletal: Orthopedic Surgery Female Surgical History: Other Other Surgical History: ablasion, foot, cancer removal - Social History Smoking Status: Current every day smoker How long have you smoked: 25 yrs Exposure to second hand smoke: Yes Drug Use: none Patient Lives Alone: No - Female History Hx Last Menstrual Period: no Hx Now: No - Nursing Vital Signs Nursing Vital Signs: Initial Vital Signs Temperature 97 F 12/07/19 14:19 Pulse Rate 82 12/07/19 14:19 Respiratory Rate 16 12/07/19 14:19 Blood Pressure 172/80 12/07/19 14:19 O2 Sat by Pulse Oximetry 98 12/07/19 14:19 Pain Scale Pain Intensity 6 - Physical Exam SpO2: 98 - Course Nursing assessment & vital signs reviewed: Yes Ordered Tests: Active Orders 24 hr Category Date Time Status IV Insertion STAT Care 12/07/19 15:22 Active LUMBAR SPINE W/O [CT] Stat Exams 12/07/19 15:11 Completed CBC W DIFF Stat Lab 12/07/19 15:09 Completed CMP Stat Lab 12/07/19 15:09 Completed CULTURE,URINE Stat Lab 12/07/19 15:09 Received UA W/RFX UR CULTURE Stat Lab 12/07/19 15:09 Completed Medication Summary Discontinued Medications Generic Name Dose Route Start Last Admin Trade Name Freq PRN Reason Stop Dose Admin Dexamethasone Sodium Phosphate 10 mg 12/07/19 15:12 12/07/19 15:29 Decadron 10mg Inj. IV 12/07/19 15:13 10 mg STAT ONE Administration Dexamethasone Sodium Phosphate Confirm 12/07/19 15:26 Decadron 10mg Inj. Administered 12/07/19 15:27 Dose 10 mg .ROUTE .STK-MED ONE Ketorolac Tromethamine 30 mg 12/07/19 16:57 12/07/19 16:58 Toradol 30 Mg Injection IV 12/07/19 16:58 30 mg STAT ONE Administration Ketorolac Tromethamine Confirm 12/07/19 16:57 Toradol 30 Mg Injection Administered 12/07/19 16:58 Dose 30 mg .ROUTE .STK-MED ONE Morphine Sulfate 4 mg 12/07/19 15:13 12/07/19 15:29 Morphine Sulfate 4 Mg Inj IV 12/07/19 15:14 4 mg STAT ONE Administration Morphine Sulfate Confirm 12/07/19 15:26 Morphine Sulfate 4 Mg Inj Administered 12/07/19 15:27 Dose 4 mg .ROUTE .STK-MED ONE Ondansetron HCl 4 mg 12/07/19 15:13 12/07/19 15:29 Zofran 4 Mg/2 Ml Vial IV 12/07/19 15:14 4 mg STAT ONE Administration Ondansetron HCl Confirm 12/07/19 15:26 Zofran 4 Mg/2 Ml Vial Administered 12/07/19 15:27 Dose 4 mg .ROUTE .STK-MED ONE Lab/Rad Data: Laboratory Result Diagrams 12/07/19 15:09 12/07/19 15:09 Laboratory Results 12/07/19 12/07/19 12/07/19 Range/Units 15:09 15:09 15:09 WBC 10.7 H (4.0-10.5) K/mm3 RBC 4.79 (4.1-5.4) M/mm3 Hgb 14.4 (12.0-16.0) gm/dl Hct 44.4 (35-47) % MCV 92.7 (78-100) fl MCH 30.1 (26-32) pg MCHC 32.4 (32-36) g/dl RDW 13.7 (11.5-14.0) % Plt Count 281 (150-450) K/mm3 MPV 10.8 (7.5-11.0) fl Gran % 52.1 (36.0-66.0) % Eos # (Auto) 0.18 (0-0.5) Absolute Lymphs (auto) 4.12 (1.0-4.6) Absolute Monos (auto) 0.76 (0.0-1.3) Lymphocytes % 38.7 (24.0-44.0) % Monocytes % 7.1 (0.0-12.0) % Eosinophils % 1.7 (0.00-5.0) % Basophils % 0.4 (0.0-0.4) % Absolute Granulocytes 5.55 (1.4-6.9) Basophils # 0.04 (0-0.4) Sodium 143 (137-145) mmol/L Potassium 4.3 (3.5-5.1) mmol/L Chloride 109 H (98-107) mmol/L Carbon Dioxide 26 (22-30) mmol/L Anion Gap 12.4 (5-15) MEQ/L BUN 13 (7-17) mg/dL Creatinine 0.76 (0.52-1.04) mg/dL Estimated GFR > 60.0 ML/MIN Glucose 98 (74-106) mg/dL Calcium 9.2 (8.4-10.2) mg/dL Total Bilirubin 0.30 (0.2-1.3) mg/dL AST 20 (14-36) U/L ALT 15 (0-35) U/L Alkaline Phosphatase 56 (38-126) U/L Serum Total Protein 8.2 (6.3-8.2) g/dL Albumin 4.6 (3.5-5.0) g/dL Urine Color STRAW (YELLOW) Urine Appearance CLEAR (CLEAR) Urine pH 8.0 (5-6) Ur Specific [place] 1.005 (1.005-1.025) Urine Protein NEGATIVE (Negative) Urine Ketones NEGATIVE (NEGATIVE) Urine Blood SMALL (0-5) Etienne/ul Urine Nitrite NEGATIVE (NEGATIVE) Urine Bilirubin NEGATIVE (NEGATIVE) Urine Urobilinogen NEGATIVE (0-1) mg/dL Ur Leukocyte Esterase TRACE (NEGATIVE) Urine WBC (Auto) 0-2 (0-5) /HPF Urine RBC (Auto) NONE (0-2) /HPF U Epithel Cells (Auto) RARE (FEW) /HPF Urine Bacteria (Auto) RARE (NEGATIVE) /HPF Urine Mucus (Auto) SLIGHT (NEGATIVE) /HPF Urine Culture Reflexed YES (NO) Urine Glucose NEGATIVE (NEGATIVE) mg/dL - Progress Progress: improved, re-examined Progress Note: 44 years old is evaluated for low back pain with radiation to right lower extremity with positive straight leg raising test on the right but has a negative neuro exam in both lower extremities. Patient was able to ambulate in the ER without any limitation and was able to go to the bathroom to give a urine sample. I have done rectal exam and has good perianal sensation and rectal tone. I have obtained CT lumbar spine but did not show any disc herniation, fracture or narrowing compromising spinal cord. I believe patient has lumbar strain and will start her on Flexeril and ibuprofen. Recommended outpatient follow-up for further evaluation and may need an MRI if pain persists. Discussed signs symptoms of worsening needing return to ER which she seems understanding. Patient is able to ambulate normally in the ER prior to discharge and is being discharged in a stable condition 12/07/19 17:15 Counseled pt/family regarding: lab results, diagnosis, need for follow-up, rad results - Departure Departure Disposition: Home Clinical Impression: Low back pain Qualifiers: Chronicity: acute Back pain laterality: right Sciatica presence: with sciatica Sciatica laterality: sciatica of right side Qualified Code(s): M54.41 - Lumbago with sciatica, right side Condition: Stable Critical Care Time: No Referrals: HOSPITAL,'S [Primary Care Provider] - Instructions: Low Back Pain (DC), Sciatica (DC) Additional Instructions: Follow-up with your primary care for reevaluation and getting outpatient MRI done if pain persists. Return to ER immediately for numbness weakness of lower extremities/loss of bowel or bladder control or pelvic area numbness. Prescriptions: Ibuprofen 600 mg PO Q6HPRN PRN 10 Days #20 tablet PRN Reason: Pain Cyclobenzaprine HCl 10 mg [Flexeril 10 MG] 10 mg PO TID #12 tablet
[2019-12-07] MEDS ORDERED: DECADRON 10MG INJ. IV ONE (15:12)
[2019-12-07] MEDS ORDERED: MORPHINE SULFATE 4 MG INJ IV ONE (15:13)
[2019-12-07] MEDS ORDERED: Zofran 4 MG/2 ML VIAL IV ONE (15:13)
[2019-12-07] MEDS ORDERED: Zofran 4 MG/2 ML VIAL ONE (15:26)
[2019-12-07] MEDS ORDERED: MORPHINE SULFATE 4 MG INJ ONE (15:26)
[2019-12-07] MEDS ORDERED: DECADRON 10MG INJ. ONE (15:26)
[2019-12-07 15:31] LABS: Appearance CLEAR (CLEAR); Bacteria RARE /HPF (NEGATIVE); Bilirubin NEGATIVE (NEGATIVE); Blood SMALL Ery/ul (0-5); Epithelial Cells RARE /HPF (FEW); Glucose NEGATIVE (NEGATIVE); Ketones NEGATIVE (NEGATIVE); Leukocyte Esterase TRACE (NEGATIVE); Mucus SLIGHT /HPF (NEGATIVE); Nitrite NEGATIVE (NEGATIVE); Protein,Urine Dip NEGATIVE (Negative); Specific Gravity 1.005 (1.005-1.025); Urobilinogen NEGATIVE mg/dL (0-1); WBC 0-2 /HPF (0-5)
[2019-12-07 15:32] LABS: Absolute Neutrophil Ct (ANC) 5.55 (1.4-6.9); BASOPHIL % 0.4 % (0.0-0.4); Basophil (Absolute #) 0.04 (0-0.4); Eosinophil % 1.7 % (0.00-5.0); Eosinophil (Absolute #) 0.18 (0-0.5); Hematocrit 44.4 % (35-47); Hemoglobin 14.4 gm/dl (12.0-16.0); Lymphocyte (Absolute #) 4.12 (1.0-4.6); Lymphocytes % 38.7 % (24.0-44.0); Mean Cell Volume 92.7 fl (78-100); Mean Corpuscular Hemoglobin 30.1 pg (26-32); Mean Corpuscular Hgb Concent. 32.4 g/dl (32-36); Mean Platelet Volume 10.8 fl (7.5-11.0); Monocyte (Absolute #) 0.76 (0.0-1.3); Monocytes % 7.1 % (0.0-12.0); Neutrophil % 52.1 % (36.0-66.0); Platelet Count 281 K/mm3 (150-450); Red Blood Count 4.79 M/mm3 (4.1-5.4); Red Cell Distribution Width 13.7 % (11.5-14.0); White Blood Count 10.7 K/mm3 (4.0-10.5)
[2019-12-07 15:41] LABS: ALBUMIN 4.6 g/dL (3.5-5.0); ALKALINE PHOSPHATASE 56 U/L (38-126); ANION GAP 12.4 MEQ/L (5-15); BLOOD UREA NITROGEN 13 mg/dL (7-17); CHLORIDE 109 mmol/L (98-107); Calcium 9.2 mg/dL (8.4-10.2); Carbon Dioxide 26 mmol/L (22-30); Creatinine 1 0.76 mg/dL (0.52-1.04); Glucose 98 mg/dL (74-106); Potassium 4.3 mmol/L (3.5-5.1); SGOT/AST 20 U/L (14-36); SGPT/ALT 15 U/L (0-35); SODIUM 143 mmol/L (137-145); Total Protein 8.2 g/dL (6.3-8.2)
[2019-12-07] MEDS ORDERED: TORAdol 30 mg Injection IV ONE (16:57)
[2019-12-07] MEDS ORDERED: TORAdol 30 mg Injection ONE (16:57)
--- NOTE | 2019-12-07 16:57 | XRAY ---
Exam: CT of the lumbar spine without IV contrast from 12/07/2019. CTDI: 23.00 mGy. Comparison: None. Indication: 44-year-old female with low back pain, no known injury, rule out cauda equina. Technique: Non-IV contrast axial images were obtained through the lumbar spine. Reconstructed coronal and sagittal images were created and reviewed. In addition, reconstructed angled axial images were obtained parallel to each of the lower 3 lumbar interspaces from mid vertebral body level to mid vertebral body level. Findings: I see no acute lumbar spine fracture, spondylolisthesis, or spondylolysis. No focal bone destruction is seen. There is moderate asymmetric facet joint osteoarthritis affecting the right L4-L5 facet joint. Both spurring and some vacuum phenomena is seen at this level. The other facet joints appear unremarkable. A small bone island is seen within the upper aspect of the left iliac bone. The sacroiliac joints appear unremarkable. The T11-T12, T12-L1, L1-L2, and L-2L3 disc levels appear unremarkable. There is no central canal spinal stenosis, disc herniation, or neural foraminal impingement. At L3-L4, the disc and thecal sac appear unremarkable. No spinal stenosis or disc herniation is seen. The neural foramen appear unremarkable. The facet joints appear normal. At L4-L5, the disc and thecal sac appear unremarkable. No focal disc herniation or spinal stenosis is seen. The neural foramen appear open bilaterally. I again see moderate osteoarthritis of the right L4-L5 facet joint. At L5-S1, the disc and spinal sac appear unremarkable. No central canal spinal stenosis, disc herniation, or neural foraminal narrowing is seen. The facet joints appear unremarkable. Impression: 1. No acute lumbar spine fracture, spondylolisthesis, or spondylolysis is seen. 2. I see no findings to suggest focal disc herniation, central canal lumbar spinal stenosis, or lateral neural foraminal narrowing. 3. There is moderate osteoarthritis affecting the right L4-L5 facet joint. No other focal significant bone lesion is seen.
[2019-12-07 17:03] VITALS: BP 178/85; PULSE 72
[2019-12-07 17:17] VITALS: O2SAT 98
== END 2019-12-07 17:28 | disposition home or self-care (01) ==
LOC: ED 14:11
DX: M54.41 Lumbago with sciatica, right side (principal)
CPT/HCPCS: 36000; 36415; 72131; 80053; 81001; 85025; 87086; 96374; 96375; 99284; J1100; J1885; J2270; J2405

== ENCOUNTER 2021-09-10 19:03 | Emergency (ER) | payer OTHER ==
[2021-09-10] MEDS ORDERED: Catapres 0.1 MG PO ONE ×2 (19:35→21:01)
--- NOTE | 2021-09-10 19:42 | ERPHSYRPT ---
- History of Present Illness Time Seen by Provider: 09/10/21 19:21 Source: patient Exam Limitations: no limitations Patient Subjective Stated Complaint: Patient states she went to the [facility] today for a check up related to low back pain. She noticed she had an elevated B/P at the office and the [facility] sent her home with a monitor but no medications. Her B/P has increased throughout the day and now she has a headache rated as a #3 on 0-10 scale. Triage Nursing Assessment: Patient walked back to ED without difficulties. Patient is alert and oriented and able to answer questions appropriately. Patient is anxious and talkative. Apical heart rate normal. PERRL. Physician History: 46 years old female with a history of anxiety/depression presented in the ER with chief complaint of elevated blood pressure. Patient reports she was seen at [facility] today and her blood pressure was 170/90, was recommended to monitor it. She noted earlier she was having mild headache and checked her blood pressure it was in 190s.. On presentation she has a systolic 185. She is complaining of mild dull headache without any visual disturbance, numbness tingling or focal weakness. Denies any chest pain palpitations or shortness of breath. Denies taking any [id number] medications for cough congestion. Denies any extra salt intake. Timing/Duration: today, constant, worse Severity: moderate Associated Symptoms: headaches, No shortness of breath, No chest pain Allergies/Adverse Reactions: No Known Drug Allergies Allergy (Verified 09/10/21 19:09) Home Medications: Amphet Asp/Amphet/D-Amphet [Amphetamine Salts 15 mg Tab] 15 mg PO DAILY 09/10/21 [History] Sertraline HCl [Zoloft] 100 mg PO DAILY 09/10/21 [History] Hx Tetanus, Diphtheria Vaccination/Date Given: Yes Hx Influenza Vaccination/Date Given: No Hx Pneumococcal Vaccination/Date Given: No Immunizations Up to Date: Yes Travel Risk - International Travel Have you traveled outside of the country in past 3 weeks: No - Coronavirus Screening Are you exhibiting any of the following symptoms?: No Close contact with a COVID-19 positive Pt in past 14-21 Days: No - Vaccine Status Have you recieved a Covid-19 vaccination: Yes Autom[employer] Qa Lead: Moderna - Vaccination Dates Date of 2cond Vaccination (if applicable): February 2021 - Review of Systems Constitutional: No Symptoms Eyes: No Symptoms Ears, Nose, & Throat: No Symptoms Respiratory: No Symptoms Cardiac: No Symptoms Abdominal/Gastrointestinal: No Symptoms Genitourinary Symptoms: No Symptoms Musculoskeletal: No Symptoms Skin: No Symptoms Neurological: Headache Psychological: Anxiety, Depression Endocrine: No Symptoms Hematologic/Lymphatic: No Symptoms Immunological/Allergic: No Symptoms - Past Medical History Pertinent Past Medical History: Yes Neurological History: No Pertinent History ENT History: No Pertinent History Cardiac History: Hypertension Respiratory History: No Pertinent History Endocrine Medical History: No Pertinent History Musculoskeletal History: Fractures GI Medical History: No Pertinent History History: No Pertinent History Psycho-Social History: Depression Female Reproductive Disorders: No Pertinent History Other Medical History: skin ca - Past Surgical History Past Surgical History: Yes (2018) Neuro Surgical History: No Pertinent History Cardiac: No Pertinent History Gastrointestinal: No Pertinent History Genitourinary: No Pertinent History Musculoskeletal: Orthopedic Surgery Female Surgical History: Other Other Surgical History: ablasion, foot, cancer removal - Social History Smoking Status: Current every day smoker How long have you smoked: 28 yrs Exposure to second hand smoke: Yes Drug Use: none Patient Lives Alone: No - Female History Hx Last Menstrual Period: Doesn't have them anymore Hx Now: (unkn) - Nursing Vital Signs Nursing Vital Signs: Initial Vital Signs Temperature 97.9 F 09/10/21 19:13 Pulse Rate 88 09/10/21 19:13 Respiratory Rate 15 09/10/21 19:13 Blood Pressure 209/117 09/10/21 19:13 O2 Sat by Pulse Oximetry 98 09/10/21 19:13 Pain Scale Pain Intensity 3 - Physical Exam General Appearance: no apparent distress, alert Eye Exam: PERRL/EOMI, eyes nml inspection Ears, Nose, Throat Exam: normal ENT inspection, TMs normal, pharynx normal, moist mucous membranes Neck Exam: normal inspection, non-tender, supple, full range of motion Respiratory Exam: normal breath sounds, lungs clear Cardiovascular Exam: regular rate/rhythm, normal heart sounds Gastrointestinal/Abdomen Exam: soft, normal bowel sounds, No tenderness Back Exam: normal inspection, normal range of motion Extremity Exam: normal inspection, normal range of motion, pelvis stable Neurologic Exam: alert, oriented x 3, cooperative, director of operations support II-XII nml as tested, normal mood/affect, nml cerebellar function, nml station & gait, sensation nml, No motor deficits Skin Exam: normal color SpO2 Interpretation: normal SpO2: 98 O2 Delivery: Room Air - Course EKG Interpreted by Me: RATE (82), Sinus Rhythm, NORMAL AXIS, NORMAL INTERVALS, Non-specific ST Changes Ordered Tests: Active Orders 24 hr Category Date Time Status Business System Manager STAT Care 09/10/21 19:35 Active EKG-ER Only STAT Care 09/10/21 19:34 Active IV Insertion STAT Care 09/10/21 19:34 Active CHEST 1 VIEW (PORTABLE) Stat Exams 09/10/21 19:35 Taken CBC W DIFF Stat Lab 09/10/21 20:00 Completed CMP Stat Lab 09/10/21 20:00 Completed CULTURE,URINE Stat Lab 09/10/21 21:12 Received NT PRO BNP Stat Lab 09/10/21 20:00 Completed TROPONIN Q3H Lab 09/10/21 20:00 Completed TROPONIN Q3H Lab 09/10/21 22:45 Ordered TROPONIN Q3H Lab 09/11/21 01:45 Ordered TROPONIN Q3H Lab 09/11/21 04:45 Ordered TROPONIN Q3H Lab 09/11/21 07:45 Ordered UA W/RFX UR CULTURE Stat Lab 09/10/21 21:12 Completed Medication Summary Generic Name Dose Route Start Last Admin Trade Name Freernst PRN Reason Stop Dose Admin Losartan Potassium 50 mg 09/11/21 10:00 09/10/21 20:11 Losartan Potassium 50 Mg Tablet PO 10/11/21 09:59 50 mg DAILY RUBY Administration Discontinued Medications Generic Name Dose Route Start Last Admin Trade Name Stalin PRN Reason Stop Dose Admin Clonidine 0.1 mg 09/10/21 19:35 09/10/21 20:00 Clonidine Hcl 0.1 Mg Tablet PO 09/10/21 19:36 0.1 mg STAT ONE Administration Clonidine Confirm 09/10/21 20:00 Clonidine Hcl 0.1 Mg Tablet Administered 09/10/21 20:01 Dose 0.1 mg .ROUTE .STK-MED ONE Clonidine 0.1 mg 09/10/21 21:01 09/10/21 21:03 Clonidine Hcl 0.1 Mg Tablet PO 09/10/21 21:02 0.1 mg STAT ONE Administration Clonidine Confirm 09/10/21 21:00 Clonidine Hcl 0.1 Mg Tablet Administered 09/10/21 21:01 Dose 0.1 mg .ROUTE .STK-MED ONE Ceftriaxone Sodium/Dextrose 1 g in 50 mls @ 100 mls/hr 09/10/21 21:55 09/10/21 22:29 Rocephin 1 Gm-D5w 50 Ml Bag IV 09/10/21 22:24 Infused STAT STA Infusion Ceftriaxone Sodium/Dextrose Confirm 09/10/21 21:56 Rocephin 1 Gm-D5w 50 Ml Bag Administered 09/10/21 21:57 Dose 1 g in 50 mls @ ud IV .STK-MED ONE Losartan Potassium Confirm 09/10/21 20:07 Losartan Potassium 50 Mg Tablet Administered 09/10/21 20:08 Dose 50 mg .ROUTE .STK-MED ONE Lab/Rad Data: Laboratory Result Diagrams 09/10/21 20:00 09/10/21 20:00 Laboratory Results 09/10/21 09/10/21 09/10/21 Range/Units 21:12 20:00 20:00 WBC (4.0-10.5) K/mm3 RBC (4.1-5.4) M/mm3 Hgb (12.0-16.0) gm/dl Hct (35-47) % MCV (78-100) fl MCH (26-32) pg MCHC (32-36) g/dl RDW (11.5-14.0) % Plt Count (150-450) K/mm3 MPV (7.5-11.0) fl Gran % (36.0-66.0) % Eos # (Auto) (0-0.5) Absolute Lymphs (auto) (1.0-4.6) Absolute Monos (auto) (0.0-1.3) Lymphocytes % (24.0-44.0) % Monocytes % (0.0-12.0) % Eosinophils % (0.00-5.0) % Basophils % (0.0-0.4) % Absolute Granulocytes (1.4-6.9) Basophils # (0-0.4) Sodium 140 (137-145) mmol/L Potassium 3.3 L (3.5-5.1) mmol/L Chloride 105 (98-107) mmol/L Carbon Dioxide 26 (22-30) mmol/L Anion Gap 12.6 (5-15) MEQ/L BUN 13 (7-17) mg/dL Creatinine 0.62 (0.52-1.04) mg/dL Estimated GFR > 60.0 ML/MIN Glucose 97 (74-106) mg/dL Calcium 9.0 (8.4-10.2) mg/dL Total Bilirubin 0.30 (0.2-1.3) mg/dL AST 19 (14-36) U/L ALT 18 (0-35) U/L Alkaline Phosphatase 66 (38-126) U/L Troponin I < 0.012 (0.000-0.034) ng/mL NT-Pro-B Natriuret Pep 175 (0-450) pg/mL Serum Total Protein 6.9 (6.3-8.2) g/dL Albumin 4.2 (3.5-5.0) g/dL Urine Color YELLOW (YELLOW) Urine Appearance SLIGHTLY CLOUDY (CLEAR) Urine pH 7.0 (5-6) Ur Specific [place] 1.008 (1.005-1.025) Urine Protein NEGATIVE (Negative) Urine Ketones NEGATIVE (NEGATIVE) Urine Blood MODERATE (0-5) Etienne/ul Urine Nitrite POSITIVE (NEGATIVE) Urine Bilirubin NEGATIVE (NEGATIVE) Urine Urobilinogen NEGATIVE (0-1) mg/dL Ur Leukocyte Esterase TRACE (NEGATIVE) Urine WBC (Auto) 3-5 (0-5) /HPF Urine RBC (Auto) NONE (0-2) /HPF U Epithel Cells (Auto) RARE (FEW) /HPF Urine Bacteria (Auto) NONE (NEGATIVE) /HPF Amorphous Crystals FEW (NEGATIVE) /HPF Urine Mucus (Auto) SLIGHT (NEGATIVE) /HPF Urine Culture Reflexed YES (NO) Urine Glucose NEGATIVE (NEGATIVE) mg/dL 09/10/21 Range/Units 20:00 WBC 11.1 H (4.0-10.5) K/mm3 RBC 4.69 (4.1-5.4) M/mm3 Hgb 14.1 (12.0-16.0) gm/dl Hct 44.3 (35-47) % MCV 94.5 (78-100) fl MCH 30.1 (26-32) pg MCHC 31.8 L (32-36) g/dl RDW 13.6 (11.5-14.0) % Plt Count 270 (150-450) K/mm3 MPV 11.1 H (7.5-11.0) fl Gran % 58.3 (36.0-66.0) % Eos # (Auto) 0.20 (0-0.5) Absolute Lymphs (auto) 3.73 (1.0-4.6) Absolute Monos (auto) 0.67 (0.0-1.3) Lymphocytes % 33.5 (24.0-44.0) % Monocytes % 6.0 (0.0-12.0) % Eosinophils % 1.8 (0.00-5.0) % Basophils % 0.4 (0.0-0.4) % Absolute Granulocytes 6.47 (1.4-6.9) Basophils # 0.05 (0-0.4) Sodium (137-145) mmol/L Potassium (3.5-5.1) mmol/L Chloride (98-107) mmol/L Carbon Dioxide (22-30) mmol/L Anion Gap (5-15) MEQ/L BUN (7-17) mg/dL Creatinine (0.52-1.04) mg/dL Estimated GFR ML/MIN Glucose (74-106) mg/dL Calcium (8.4-10.2) mg/dL Total Bilirubin (0.2-1.3) mg/dL AST (14-36) U/L ALT (0-35) U/L Alkaline Phosphatase (38-126) U/L Troponin I (0.000-0.034) ng/mL NT-Pro-B Natriuret Pep (0-450) pg/mL Serum Total Protein (6.3-8.2) g/dL Albumin (3.5-5.0) g/dL Urine Color (YELLOW) Urine Appearance (CLEAR) Urine pH (5-6) Ur Specific [place] (1.005-1.025) Urine Protein (Negative) Urine Ketones (NEGATIVE) Urine Blood (0-5) Etienne/ul Urine Nitrite (NEGATIVE) Urine Bilirubin (NEGATIVE) Urine Urobilinogen (0-1) mg/dL Ur Leukocyte Esterase (NEGATIVE) Urine WBC (Auto) (0-5) /HPF Urine RBC (Auto) (0-2) /HPF U Epithel Cells (Auto) (FEW) /HPF Urine Bacteria (Auto) (NEGATIVE) /HPF Amorphous Crystals (NEGATIVE) /HPF Urine Mucus (Auto) (NEGATIVE) /HPF Urine Culture Reflexed (NO) Urine Glucose (NEGATIVE) mg/dL - Progress Progress: improved Progress Note: EKG showed sinus rhythm without any acute ST elevation and negative troponin. Chest x-ray negative for any acute cardiopulmonary findings. Grossly unremarkable chemistries. She is given clonidine and losartan inherent blood pressure improved to 160s. With this high blood pressure I think patient has been hypertensive but it went unchecked. I will start her on antihypertensive, recommended monitoring and outpatient follow-up with PCP in 1 week as scheduled. Does have UTI and given dose of Rocephin.. She has her prescriptions sent by [facility] which she is about to receive tomorrow morning. Scheduled and as needed discussed signs symptoms of hypertensive urgency/emergency needing return to ER which she seems understanding. Stable for discharge. 09/10/21 22:33 Counseled pt/family regarding: lab results, diagnosis, need for follow-up, rad results, smoking cessation - Departure Departure Disposition: Home Clinical Impression: Uncontrolled hypertension, Acute UTI Condition: Stable Critical Care Time: No Referrals: [facility]OS[facility],'[facility] [Primary Care Provider] - Follow up/PCP as directed (As scheduled early next week.) Instructions: Malignant Hypertension (DC), Urinary Tract Infection, Adult (DC) Additional Instructions: Take low-salt diet. Keep a blood pressure log and follow-up with PCP. Return to ER for intractable headache, visual disturbance, difficulty speech, chest pain, abdominal pain, palpitations shortness of breath etc. Prescriptions: Clonidine HCl 0.1 mg [Catapres 0.1 MG] 0.1 mg PO Q12H PRN PRN 10 Days #10 tablet PRN Reason: Hypertension Losartan Potassium 50 mg [Cozaar 50 MG] 50 mg PO DAILY #30 tablet
[2021-09-10] MEDS ORDERED: Catapres 0.1 MG ONE ×2 (20:00→21:00)
[2021-09-10 20:06] LABS: Absolute Neutrophil Ct (ANC) 6.47 (1.4-6.9); BASOPHIL % 0.4 % (0.0-0.4); Basophil (Absolute #) 0.05 (0-0.4); Eosinophil % 1.8 % (0.00-5.0); Hematocrit 44.3 % (35-47); Hemoglobin 14.1 gm/dl (12.0-16.0); Lymphocyte (Absolute #) 3.73 (1.0-4.6); Lymphocytes % 33.5 % (24.0-44.0); Mean Cell Volume 94.5 fl (78-100); Mean Corpuscular Hemoglobin 30.1 pg (26-32); Mean Corpuscular Hgb Concent. 31.8 g/dl (32-36); Mean Platelet Volume 11.1 fl (7.5-11.0); Monocyte (Absolute #) 0.67 (0.0-1.3); Neutrophil % 58.3 % (36.0-66.0); Platelet Count 270 K/mm3 (150-450); Red Blood Count 4.69 M/mm3 (4.1-5.4); Red Cell Distribution Width 13.6 % (11.5-14.0); White Blood Count 11.1 K/mm3 (4.0-10.5)
[2021-09-10] MEDS ORDERED: Cozaar 50 MG ONE (20:07)
[2021-09-10 20:42] LABS: ALBUMIN 4.2 g/dL (3.5-5.0); ALKALINE PHOSPHATASE 66 U/L (38-126); ANION GAP 12.6 MEQ/L (5-15); BLOOD UREA NITROGEN 13 mg/dL (7-17); CHLORIDE 105 mmol/L (98-107); Carbon Dioxide 26 mmol/L (22-30); Creatinine 1 0.62 mg/dL (0.52-1.04); EST GLOMERULAR FILTRATION RATE > 60.0 ML/MIN; Glucose 97 mg/dL (74-106); NT PRO BNP 175 pg/mL (0-450); Potassium 3.3 mmol/L (3.5-5.1); SGOT/AST 19 U/L (14-36); SGPT/ALT 18 U/L (0-35); SODIUM 140 mmol/L (137-145); Total Protein 6.9 g/dL (6.3-8.2)
[2021-09-10 21:45] LABS: Amourphous Crystal FEW /HPF (NEGATIVE); Appearance SLIGHTLY CLOUDY (CLEAR); Bilirubin NEGATIVE (NEGATIVE); Blood MODERATE Ery/ul (0-5); Epithelial Cells RARE /HPF (FEW); Glucose NEGATIVE (NEGATIVE); Ketones NEGATIVE (NEGATIVE); Leukocyte Esterase TRACE (NEGATIVE); Mucus SLIGHT /HPF (NEGATIVE); Nitrite POSITIVE (NEGATIVE); Protein,Urine Dip NEGATIVE (Negative); Specific Gravity 1.008 (1.005-1.025); Urobilinogen NEGATIVE mg/dL (0-1)
[2021-09-10] MEDS ORDERED: ROCEPHIN 1 Gm-D5w 50 ml Bag** 1 G/50 ML IVPB IV STA (21:55)
[2021-09-10] MEDS ORDERED: ROCEPHIN 1 Gm-D5w 50 ml Bag** 1 G/50 ML IVPB IV ONE (21:56)
[2021-09-10 22:27] VITALS: O2SAT 98
[2021-09-10 22:57] VITALS: BP 164/97; PULSE 80
--- NOTE | 2021-09-11 08:56 | XRAY ---
Indication: Hypertension. Comparison: None Portable chest demonstrates normal heart and lungs. Bony thorax intact.
[2021-09-11] MEDS ORDERED: Cozaar 50 MG PO SCH (10:00)
== END 2021-09-10 22:55 | disposition home or self-care (01) ==
LOC: ED 19:03
DX: I10 Essential (primary) hypertension (principal); R51.9 Headache, unspecified; Z72.0 Tobacco use; N39.0 Urinary tract infection, site not specified
CPT/HCPCS: 36000; 36415; 71045; 80053; 81001; 83880; 84484; 85025; 87086; 93005; 93041; 99284; J0696; A9270-GY